=== PATIENT | female | born 2000 | race Caucasian/White ===

== ENCOUNTER 2023-02-09 20:20 | Emergency (ER) | payer SELFPAY ==
[~2023-02-09] VITALS: Ht 167.6 cm; Wt 70.0 kg
[~2023-02-09 20:20] MED LIST: FLONASE SPRAY50 MCG; FLONASE0.05 %; TRIAMINIC-D OR
[2023-02-09 20:30] VITALS: BP 61/36
[2023-02-09 20:31] VITALS: BP 131/83
[2023-02-09 20:45] VITALS: BP 117/73
[2023-02-09 21:00] VITALS: BP 123/79
[2023-02-09 21:15] VITALS: BP 121/78
[2023-02-09 21:26] VITALS: BP 121/78
== END 2023-02-09 21:34 | disposition home or self-care (01) | DRG 563 ==
LOC: ED 20:20
DX: S62.617A Displaced fracture of proximal phalanx of left little finger, initial encounter for closed fracture (principal); W21.06XA Struck by volleyball, initial encounter; Y92.009 Unspecified place in unspecified non-institutional (private) residence as the place of occurrence of the external cause